=== PATIENT | male | born 1945 | race Caucasian/White ===

== ENCOUNTER → 2016-10-24 | Outpatient (CLI) | payer MEDICARE, BC ==
[2016-10-24 15:53] LABS: ABG COLLECTION SITE RIGHT BRACHIAL; COLLATERAL CIRCULATION TESTING NORMAL
== END | disposition home or self-care (01) ==
LOC: CARD 15:30
PROVIDERS: ATTEND Internal Medicine Pulmonary Disease
DX: G12.21 Amyotrophic lateral sclerosis (principal)
CPT/HCPCS: 36600; 82803; 94010; 94729

== ENCOUNTER 2017-01-10 06:04 | Observation (INO) | payer MEDICARE, BC ==
[~2017-01-10] VITALS: Ht 175.3 cm; Wt 68.0 kg
[~2017-01-10 06:04] MED LIST: DEXT1CAP PO; POLY17PO5 PO; RILU50TA3 PO; SIMV20TA3 PO; WHEA1POW5 PO; WILL BRING DOS
[2017-01-10 07:27] VITALS: BP 126/78
[2017-01-10] MEDS ORDERED: EPHEDRINE 50 MG/ML, 1ML IVPush PRN (07:30)
[2017-01-10] MEDS ORDERED: LABETALOL 5MG/ML, 20ML IV PRN (07:30)
[2017-01-10] MEDS ORDERED: FENTANYL PF 100 MCG/2ML IV PRN (07:30)
[2017-01-10] MEDS ORDERED: ACETAMINOPHEN 325 MG TABLET PO PRN (07:30)
[2017-01-10] MEDS ORDERED: ALBUTEROL SULFATE 2.5 MG/3 ML NPPB PRN (07:30)
[2017-01-10] MEDS ORDERED: ONDANSETRON 2MG/ML, 2ML IVPush PRN ×2 (07:30→15:00)
[2017-01-10] MEDS ORDERED: FENTANYL PF 100 MCG/2ML ONE (07:32)
[2017-01-10] MEDS ORDERED: PROPOFOL 10 MG/ML, 20ML ONE (07:39)
[2017-01-10 09:21] LABS: BLOOD UREA NITROGEN 19 mg/dL (7-18)
[2017-01-10 09:24] LABS: ASPARTATE AMINO TRANSFERASE 16 U/L (15-37)
[2017-01-10] MEDS ORDERED: MORPHINE SULFATE 4 MG/ML, 1ML ONE (12:21)
[2017-01-10] MEDS ORDERED: morphine SULFATE 10 MG/ML, 1ML IVPush ONE (12:30)
[2017-01-10 13:20] VITALS: BP 144/77
[2017-01-10] MEDS: SODIUM CHLORIDE 0.9% 1,000 ML IV SCH (14:43)
[2017-01-10] MEDS ORDERED: [UNRECOGNIZED DRUG - REMARK] XX PRN (15:00)
[2017-01-10] MEDS: morphine SULFATE 10 MG/ML, 1ML IVPush PRN (15:18)
[2017-01-10 19:23] VITALS: BP 105/61
[2017-01-10] MEDS ORDERED: SIMVASTATIN 20 MG TABLET PO SCH (21:00)
[2017-01-10] MEDS: RILUZOLE 50 MG HOMEMEDPO SCH (22:58)
[2017-01-11] MEDS: morphine SULFATE 10 MG/ML, 1ML IVPush PRN ×3 (00:21→10:21)
[2017-01-11 01:46] VITALS: BP 115/73
[2017-01-11] MEDS: SODIUM CHLORIDE 0.9% 1,000 ML IV SCH ×2 (01:54→10:36)
[2017-01-11 06:23] LABS: HEMOGLOBIN 12.7 g/dL (13.7-18.0); WHITE BLOOD COUNT 7.6 x10^3/uL (3.4-10)
[2017-01-11 06:38] LABS: BLOOD UREA NITROGEN 14 mg/dL (7-18)
[2017-01-11] MEDS: RILUZOLE 50 MG HOMEMEDPO SCH (08:53)
[2017-01-11] MEDS ORDERED: [UNRECOGNIZED DRUG - OTHER] HOMEMEDPO SCH (09:00)
[2017-01-11] MEDS ORDERED: DEXTROMETHORPHAN HBR HOMEMEDPO SCH (09:00)
[2017-01-11] MEDS ORDERED: QUINIDINE HOMEMEDPO SCH (09:00)
[2017-01-11 09:10] VITALS: BP 117/73
[2017-01-11] MEDS ORDERED: DIPHENHYDRAMINE 50 MG CAPSULE PO PRN (10:00)
[2017-01-11 11:33] VITALS: BP 92/62
== END 2017-01-11 12:45 | disposition home or self-care (01) ==
LOC: OUT 06:04 → 4NOR 09:22 → OUT 09:34 → DCLOUNGE 01-11 12:22
PROVIDERS: ADMIT Internal Medicine; ATTEND Internal Medicine
DX: R13.12 Dysphagia, oropharyngeal phase (principal); R47.01 Aphasia; E78.5 Hyperlipidemia, unspecified; G12.21 Amyotrophic lateral sclerosis; E11.51 Type 2 diabetes mellitus with diabetic peripheral angiopathy without gangrene; I10 Essential (primary) hypertension; Z93.1 Gastrostomy status
CPT/HCPCS: 36415; 43246; 80048; 80053; 85025; 93005; 96374; 96376; B4087; G0378; J2270; J2704; J3010; J7030